=== PATIENT | male | born 2000 | race African-American/Black ===

== ENCOUNTER 2019-03-15 04:45 | Inpatient (IN) | payer SELFPAY ==
[~2019-03-15] VITALS: Ht 170.2 cm; Wt 54.0 kg
[2019-03-15] VITALS (9 sets, daily range): BP systolic 94–164; BP diastolic 8–74
[2019-03-15] MEDS ORDERED: ACETAMINOPHEN 500 MG TAB PO ONE (05:15)
[2019-03-15 06:31] LABS: Urine Bacteria NONE SEEN /hpf (None Seen); Urine Blood Negative /uL (Negative); Urine Specific Gravity 1.021 (1.001-1.035); Urine WBC 2 /hpf (0 - 3)
[2019-03-15 07:31] LABS: Basophils # (auto) 0 uL; Basophils % (auto) 0.6 % (0.0-2.0); Eosinophils # (auto) 0 uL; Eosinophils % (auto) 0.1 % (0.0-7.0); Hematocrit 25.4 % (41.0-53.0); Hemoglobin 8.5 g/dL (13.5-17.5); Lymphocytes # (auto) 0.7 uL; Lymphocytes % (auto) 22.9 % (10.0-50.0); Mean Corpuscular Hemoglobin 28.2 pg (28.0-32.0); Mean Corpuscular Hgb Conc. 33.5 g/dL (32.0-36.0); Mean Corpuscular Volume 84.1 fL (80.0-100.0); Monocytes # (auto) 0.2 uL; Monocytes % (auto) 7.3 % (0.0-12.0); Neutrophils # (auto) 2.1 uL; Neutrophils % (auto) 69.1 % (37.0-80.0); Nucleated Red Blood Cells % 0.3 %; Platelet Count (auto) 121 10^3/uL (140-450); Red Blood Cells 3.01 10^6/uL (4.5-5.90); Red Cell Distribution Width 15.4 % (11.8-14.3)
[2019-03-15 07:38] LABS: Albumin 2.6 g/dL (3.4-5.0); Calcium 7.5 mg/dL (8.5-10.1); Potassium 3.7 mmol/L (3.5-5.1)
[2019-03-15 07:43] LABS: BUN/Creatinine Ratio 12.4; Bilirubin, Total 0.7 mg/dL (0.2-1.0); Total Protein 8.8 g/dL (6.4-8.2)
[2019-03-15] MEDS ORDERED: SODIUM CHLORIDE 0.9% 1,000 ML IV ONE ×2 (08:00)
[2019-03-15] MEDS ORDERED: cefTRIAXone W LIDOCAINE 1 GM IM IM ONE (08:00)
[2019-03-15] MEDS ORDERED: FERROUS SULFATE 325 MG TAB PO ONE (08:00)
[2019-03-15] MEDS ORDERED: AZITHROMYCIN 500MG/ 250ML 250 ML IV ONE (08:15)
[2019-03-15] MEDS ORDERED: IOHEXOL 300 MG/ML 100ML BOTTLE IJ ONE (09:43)
[2019-03-15] MEDS ORDERED: MORPHINE SULF INJ 2 MG/ML SYRINGE 1ML IV PRN ×2 (09:45)
[2019-03-15] MEDS ORDERED: NITROGLYCERIN 0.4 MG SL TAB SL PRN (09:45)
[2019-03-15] MEDS ORDERED: ONDANSETRON HCL 4 MG/2 ML VIAL IV PRN (09:45)
[2019-03-15] MEDS ORDERED: HYDROcodone-ACET 5/325MG TAB PO PRN (09:45)
[2019-03-15] MEDS: cefTRIAXone 1GM/50ML D5W 50 ML IV SCH (09:57)
[2019-03-15] MEDS ORDERED: FAMOTIDINE 20 MG TAB PO SCH (10:00)
[2019-03-15] MEDS ORDERED: AZITHROMYCIN 500MG/ 250ML 250 ML IV SCH (10:00)
[2019-03-15 10:11] LABS: % Iron Saturation 8.4 % (20-55)
[2019-03-15] MEDS: SODIUM CHLORIDE 0.9% 1,000 ML IV SCH (10:15)
[2019-03-15] MEDS: ALBUTEROL SULF 2.5 MG/0.5ML(0.5%) NEB SOLN NEB SCH ×2 (12:30→19:00)
[2019-03-15] MEDS: IPRATROPIUM BROM 0.5 MG/2.5ML INH SOL NEB SCH ×2 (12:30→19:00)
[2019-03-15] MEDS ORDERED: VANCOMYCIN PER PHARMACY 0 MG IV SCH (19:45)
--- NOTE | 2019-03-15 19:45 | NUR ---
UA AND RAPID INFLUENZA A/B SENT TO LAB
[2019-03-15] MEDS: ACETAMINOPHEN 500 MG TAB PO PRN (20:00)
--- NOTE | 2019-03-15 20:11 | NUR ---
PAGED HOSPITALIST REGARDING PATIENT, CXR ORDERED ROUTINE, PATIENT CURRENT VITALS T 102.9 HR 140 20 RR BP 103/79 O2 SAT 95% ON 12L OXYMIZER. ABG RESULTS UPLOADED. AWAITING CALL BACK. Addendum: 03/15/19 at 2013 by EVETTE RUIZ RN RN PT C/O NUMBNESS TO RIGHT ARM AT SITE WHERE ABG WAS TAKEN AWAITING HOSPITALIST TO CALL BACK TO INFORM HIM
[2019-03-15 20:26] LABS: Alcohol, Urine < 3.0 mg/dL (0-5); Amphetamine Screen, Urine NEGATIVE (NEGATIVE); Barbiturate Scree,Urine NEGATIVE (NEGATIVE); Benzodiazephine Screen, Urine NEGATIVE (NEGATIVE); Cannabinoid Screen, Urine NEGATIVE (NEGATIVE); Cocaine Screen, Urine NEGATIVE (NEGATIVE); Opiate Scree,Urine NEGATIVE (NEGATIVE); Phencyclidine Screen, Urine NEGATIVE (NEGATIVE)
--- NOTE | 2019-03-15 20:32 | NUR ---
RT INFORMED ME NEW ORDERS FOR VAPOTHERM PATIENT NEEDS TO BE ATLEAST STEP DOWN, INFORMED HIM AWAITING HOSPITALIST CALL BACK FOR ORDER CLARIFICATIONS
[2019-03-15] MEDS ORDERED: VANCOMYCIN 1GM/250ML 250 ML IV ONE (21:00)
--- NOTE | 2019-03-15 21:07 | NUR ---
REPORT GIVEN TO NURSE OCAMPO.
--- NOTE | 2019-03-15 21:30 | NUR ---
pt transferred to icu via gurney at 2114 by evelia RAMIREZ. hooked up to icu monitors. pt alert and oriented x4. sinus tach on cardiac rn. bp 104/60 respirations 30 breaths per minute, on oxymizer at 10L o2 sat is 96%. lung sounds coarse and diminished. pt stated "No, I'm not having pain right now." when asked. mother at bedside, updated on patient status, verbalized understanding. bed in lowest locked position. in full view of nurses station. will continue to monitor. 0 Respirator therapist jose at bedside, hooking pt up to vapotherm machine.
--- NOTE | 2019-03-15 21:35 | NUR ---
PATIENT HAS ORDERS TO BE TRANSFERRED TO ICU TO BE CLOSELY MONITORED AND PLACED ON VAPOTHERM PER HOSPITALIST ORDERS. TRANSFERRED PATIENT VIA GURNEY WITH 02 15L OXYMIZER ACCOMPANIED BY CENSUS ENUMERATOR AND MOTHER. ALL BELONGINGS WITH PATIENT. PATIENT IN NO APPARENT CARDIAC OR PULMONARY DISTRESS. PATIENT TRANSFERRED TO ROOM 110 WITHOUT ANY ISSUES. NURSE TERRENCE TO RESUME CARE OF PATIENT.
[2019-03-15] MEDS: FAMOTIDINE 20 MG TAB PO SCH (22:26)
--- NOTE | 2019-03-15 23:45 | NUR ---
education educated pt to call for assistance from staff member before getting out of bed. educated pt station agent light and how to use, return demonstration done. pt verbalized understanding.
[2019-03-16] VITALS (42 sets, daily range): BP systolic 92–140; BP diastolic 57–84
--- NOTE | 2019-03-16 01:04 | NUR ---
pt resting in bed with eyes closed, vital signs stable.
[2019-03-16 04:09] LABS: Potassium 3.9 mmol/L (3.5-5.1)
[2019-03-16] MEDS: SODIUM CHLORIDE 0.9% 1,000 ML IV SCH ×2 (05:31→19:47)
[2019-03-16 05:40] LABS: Basophils # (auto) 0.1 uL; Basophils % (auto) 2.4 % (0.0-2.0); Eosinophils # (auto) 0 uL; Eosinophils % (auto) 0.2 % (0.0-7.0); Hematocrit 27.6 % (41.0-53.0); Hemoglobin 8.8 g/dL (13.5-17.5); Lymphocytes # (auto) 0.6 uL; Lymphocytes % (auto) 26.3 % (10.0-50.0); Mean Corpuscular Hemoglobin 27.3 pg (28.0-32.0); Mean Corpuscular Hgb Conc. 31.9 g/dL (32.0-36.0); Mean Corpuscular Volume 85.7 fL (80.0-100.0); Monocytes # (auto) 0.2 uL; Monocytes % (auto) 9.3 % (0.0-12.0); Neutrophils # (auto) 1.4 uL; Neutrophils % (auto) 61.8 % (37.0-80.0); Nucleated Red Blood Cells % 0.8 %; Platelet Count (auto) 120 10^3/uL (140-450); Red Blood Cells 3.22 10^6/uL (4.5-5.90); Red Cell Distribution Width 15.8 % (11.8-14.3); White Blood Cell 2.2 10^3/uL (4.4-10.8)
[2019-03-16] MEDS: IPRATROPIUM BROM 0.5 MG/2.5ML INH SOL NEB SCH ×3 (06:17→18:31)
[2019-03-16] MEDS: ALBUTEROL SULF 2.5 MG/0.5ML(0.5%) NEB SOLN NEB SCH ×3 (06:17→18:31)
--- NOTE | 2019-03-16 08:00 | NUR ---
Respiratory note: INCREASED FLOW TO 50L AND FIO2 TO 70% . PT SPO2 WAS DROPPING INTO LOW 80'S. RN VIVIENNE GARCIA.
--- NOTE | 2019-03-16 08:30 | NUR ---
ELIMINATION Patient was able to void in urinal 200ml of urine and had a large soft brown bowel movement.
[2019-03-16] MEDS: ACETAMINOPHEN 500 MG TAB PO PRN (08:34)
--- NOTE | 2019-03-16 08:40 | NUR ---
NUTRITION Patient refused breakfast.
[2019-03-16] MEDS: VANCOMYCIN 750mg/250ml 250 ML IV SCH ×2 (08:43→21:17)
--- NOTE | 2019-03-16 09:45 | NUR ---
TEMPERATURE Rechecked temperature after Tylenol administration temperature 101.0. Cooling measures applied and turned on fan. Will continue to monitor patient closely.
[2019-03-16] MEDS: cefTRIAXone 1GM/50ML D5W 50 ML IV SCH (09:54)
[2019-03-16] MEDS: FAMOTIDINE 20 MG TAB PO SCH ×2 (09:54→22:25)
--- NOTE | 2019-03-16 10:05 | NUR ---
Respiratory note: TITRATED FIO2 TO 65%. ASHLEY PALAFOX NOTIFIED.
--- NOTE | 2019-03-16 11:35 | NUR ---
ELIMINATION Patient was able to void 300ml of urine in urinal.
[2019-03-16] MEDS ORDERED: AZITHROMYCIN 500MG/ 250ML 250 ML IV SCH (12:00)
--- NOTE | 2019-03-16 12:36 | NUR ---
Respiratory note: TITRATED FIO2 TO 60%. ASHLEY PALAFOX NOTIFIED.
[2019-03-16] MEDS ORDERED: ALBUTEROL SULF 2.5 MG/0.5ML(0.5%) NEB SOLN NEB PRN (13:45)
[2019-03-16] MEDS ORDERED: PIPERACILLIN-TAZOB 3.375GM 100 ML IV ONE (13:45)
--- NOTE | 2019-03-16 13:45 | NUR ---
ELIMINATION Patient was able to use urinal and voided 400ml.
[2019-03-16] MEDS: IRON SUCROSE COMPLEX 200 MG in SODIUM CHL 0.9% 100 ML IV SCH (15:00)
[2019-03-16] MEDS ORDERED: FILGRASTIM (TBO) 300 MCG/0.5 ML SYRG SC ONE (15:15)
--- NOTE | 2019-03-16 16:25 | NUR ---
Respiratory note: TITRATED FIO2 TO 70%, PT SPO2 WAS IN THE MID 80'S.
--- NOTE | 2019-03-16 16:25 | NUR ---
MD Dr. Baugh at bedside updated on patient condition with new orders, MD to input into system. MD spoke to patient regarding plan of care and questions and concerns answered by MD.
[2019-03-16 17:07] LABS: INR 1.11 (0.9-1.15)
--- NOTE | 2019-03-16 17:15 | NUR ---
ELIMINATION Patient was able to void 400ml in urinal.
--- NOTE | 2019-03-16 17:30 | NUR ---
SMASH PIECER Adriana SMASH PIECER at bedside updated on patient condition with new orders. SMASH PIECER to input into system. SMASH PIECER spoke to patient regarding plan of care and questions and concerns answered by MD.
--- NOTE | 2019-03-16 19:00 | NUR ---
Opening note Assumed care of patient at this time. Report received from day shift RN. POC reviewed. Head to toe assessment complete, see intervention spreadsheet for complete details. Received pt alert and oriented x4. PT tachycardic, tachypneic, received pt on Oxymizer. Urinal at bedside. IV site benign. Call light with in reach. Bed locked and in lowest position, safety precautions in place. Will monitor pt carefully.
--- NOTE | 2019-03-16 19:48 | NUR ---
Temp Axillary Temp, 102.7. Hr 140's POX 86% RR 30's on high flow. Pt given tylenol for fever as ordered. Cooling measures initiated. Will continue to assess.
--- NOTE | 2019-03-16 21:10 | NUR ---
Temp reassessment Axillary temp 101.7. Will continue with cooling measures.
[2019-03-16] MEDS: PIPERACILLIN-TAZOB 3.375GM 100 ML IV SCH (22:25)
--- NOTE | 2019-03-16 22:57 | NUR ---
Temp reassessment Axillary temp 99.2. Will continue to monitor.
[2019-03-17] VITALS (81 sets, daily range): BP systolic 60–144; BP diastolic 26–97
[2019-03-17] MEDS: SODIUM CHLORIDE 0.9% 1,000 ML IV SCH ×2 (02:00→13:59)
[2019-03-17] MEDS: PIPERACILLIN-TAZOB 3.375GM 100 ML IV SCH ×3 (04:05→17:01)
[2019-03-17 04:18] LABS: Basophils # (auto) 0 uL; Basophils % (auto) 0.5 % (0.0-2.0); Eosinophils # (auto) 0 uL; Eosinophils % (auto) 0.5 % (0.0-7.0); Hematocrit 31.5 % (41.0-53.0); Hemoglobin 10.5 g/dL (13.5-17.5); Lymphocytes # (auto) 0.9 uL; Mean Corpuscular Hemoglobin 28.2 pg (28.0-32.0); Mean Corpuscular Hgb Conc. 33.3 g/dL (32.0-36.0); Mean Corpuscular Volume 84.7 fL (80.0-100.0); Monocytes # (auto) 0.2 uL; Monocytes % (auto) 6.8 % (0.0-12.0); Neutrophils # (auto) 2.2 uL; Neutrophils % (auto) 65.2 % (37.0-80.0); Nucleated Red Blood Cells % 0.4 %; Platelet Count (auto) 157 10^3/uL (140-450); Red Blood Cells 3.72 10^6/uL (4.5-5.90); Red Cell Distribution Width 16.2 % (11.8-14.3); White Blood Cell 3.3 10^3/uL (4.4-10.8)
[2019-03-17 04:38] LABS: Potassium 3.8 mmol/L (3.5-5.1)
[2019-03-17 04:44] LABS: BUN/Creatinine Ratio 8.3; Calcium 6.9 mg/dL (8.5-10.1); Magnesium 2.1 mg/dL (1.6-2.6)
[2019-03-17 04:49] LABS: Folate (Folic Acid) 6.28 ng/mL (5.38-24)
[2019-03-17] MEDS: ALBUTEROL SULF 2.5 MG/0.5ML(0.5%) NEB SOLN NEB SCH ×3 (06:11→18:51)
[2019-03-17] MEDS: IPRATROPIUM BROM 0.5 MG/2.5ML INH SOL NEB SCH ×3 (06:11→18:51)
--- NOTE | 2019-03-17 06:23 | NUR ---
Consent obtained for CTA
[2019-03-17] MEDS: VANCOMYCIN 750mg/250ml 250 ML IV SCH (09:01)
--- NOTE | 2019-03-17 09:02 | NUR ---
Breakfast tray provided. Patient ate 10% of his meal.
--- NOTE | 2019-03-17 09:15 | NUR ---
Dr. Tripp at bedside.
[2019-03-17] MEDS ORDERED: BACTRIM 5MG/KG Q8HR PER RX 0 ML IV SCH (09:30)
[2019-03-17] MEDS ORDERED: IOHEXOL 350 MG/ML 100ML IJ ONE ×3 (09:43→17:12)
[2019-03-17] MEDS: FAMOTIDINE 20 MG TAB PO SCH ×2 (10:17→22:17)
[2019-03-17] MEDS: methylPREDNISolone SOD SUCC 125 MG/2 ML VL IV SCH ×3 (10:17→22:17)
[2019-03-17] MEDS ORDERED: ROCURONIUM 10MG/ML 10ML VIAL IV ONE (10:30)
[2019-03-17] MEDS ORDERED: ETOMIDATE (2MG/ML) 20ML VIAL IV ONE ×2 (10:30→11:00)
--- NOTE | 2019-03-17 10:30 | NUR ---
Dr. Vallecillo at bedside discussing POC with the patient and family members.
--- NOTE | 2019-03-17 10:31 | NUR ---
Dr. Tripp at bedside discussing intubation with the patient and family. Patient agreed to be intubated. All risks and benefits discussed with the patient. Patient verbalized understanding.
--- NOTE | 2019-03-17 10:45 | NUR ---
INTUBATION PT DESATTING DOWN TO 84% ON HFNC 60L 100%. PT INTUBATED BY DR RASCON ON FIRST ATTEMPT WITH 8.0 SECURED AT 24CM LIP WITH HOLISTER. ETT PLACEMENT CONFIRMED BY GOOD COLOR CHANGE ON CO2 DETECTOR, BILATERAL BREATH SOUNDS. PT PLACED ON VENT V21 PLUGGED INTO RED OUTLET AND PROPER O2 SOURCE. BREATH SOUNDS DIMINISHED THROUGHOUT. SUCTIONED MODERATE AMOUNT THIN YELLOW SECRETIONS. SPUTUM SAMPLE SENT TO LAB. WILL CONTINUE TO MONITOR.
--- NOTE | 2019-03-17 10:45 | NUR ---
Patient intubated with 8.0 ETT, 24 cm [address] lip [address] Tripp. X-ray paged for STAT CXR to confirm tube placement.
[2019-03-17] MEDS: fentaNYL Drip 2500mCg/250mlNS 250 ML IV SCH (10:51)
[2019-03-17] MEDS: MIDAZOLAM DRIP 50 mg/50mL 50 ML IV SCH ×3 (10:52→18:11)
--- NOTE | 2019-03-17 11:06 | NUR ---
Portable xray in progress.
--- NOTE | 2019-03-17 11:09 | NUR ---
Respiratory note: ETT PULLED BACK [address] RASCON'S ORDERS AFTER REVIEWING CXR. ETT NOW 8.0 @ 23 CM LIP SECURED WITH HOLISTER. PLACED PT ON PCV, RR 24, IP 20, PEEP +14, FIO2 100%, I TIME 1.[address] RASCON'S ORDERS. PT TOLERATING CHANGES WELL WITH POX NOW 94%. ALARMS SET AND AUDIBLE. ABG TO FOLLOW. WILL CONTINUE TO MONITOR.
--- NOTE | 2019-03-17 11:09 | NUR ---
Nasogastric tube insertion Patient educated on need for NG tube. All questions addressed. NGT inserted per MD order. Placement verified by auscultation and chest xray.
[2019-03-17] MEDS ORDERED: NOREPINEPHRINE 8 MG/250ML KIT 250 ML IV SCH (11:13)
[2019-03-17] MEDS: PROPOFOL 100 ML IV SCH (11:13)
[2019-03-17] MEDS ORDERED: LIDOCAINE 1% (LOCAL ANESTH.) PF 5ml SDV ID ONE (12:15)
--- NOTE | 2019-03-17 12:50 | NUR ---
Respiratory note: CALLED DR RASCON WITH ABG RESULTS, NEW VENT ORDERS RECEIVED. DECREASED RR TO 20, PEEP TO +12. NO FOLLOW-UP ABG ORDERED. ABG TOMORROW MORNING. WILL ENDORSE PT CARE TO NOC SHIFT RT. PT TOLERATING CHANGES WELL WITH POX 97%. PICC LINE NURSE AT BEDSIDE. PT SEDATED AND UNRESPONSIVE. WILL CONTINUE TO MONITOR.
--- NOTE | 2019-03-17 12:53 | NUR ---
PICC line placement Patient significant other educated on need for PICC line placement. All risks and benefits explained and all questions and concerns addressed prior to procedure. Noted past medical history and allergies with no contraindications. INR and Plt counts within acceptable range. 5 fr PICC line inserted via right brachial vein using [email or web address]'s [employer] US and Tip Location System. Sterile technique with maximum barrier precautions utilized. Blood return obtained from each of the 3 lumens and each flushed easily with NS using proper technique. PICC secured with Stat-lock; biodisc and occlusive dressing applied. Stat portable chest x-ray obtained for PICC tip placement. Initial image showed the distal end of the PICC line kinked in the SVC. PICC line readjusted using sterile technique and successfully placed into corrent position. *Baseline Arm Circumference 23 cm. Internal length 37 cm. External length 0 cm. PICC lot #[id number] Addendum: 03/17/19 at 1426 by TORSTEN DOVER RN Internal length 32 cm. External length 5 cm
[2019-03-17] MEDS ORDERED: NOREPINEPHRINE BITARTRATE 32 MG in D5W 5% 218 ML IV SCH (13:07)
[2019-03-17] MEDS ORDERED: PHENYLEPHRINE INJ 40 MG in SODIUM CHL 0.9% 250 ML IV SCH (13:07)
--- NOTE | 2019-03-17 13:15 | NUR ---
Okay to use PICC line Xray completed. Okay to use PICC line.
[2019-03-17] MEDS ORDERED: ACETAMINOPHEN 650 mg PER 20 mL UD GT PRN (13:30)
[2019-03-17] MEDS ORDERED: ACETAMINOPHEN 650 mg PER 20 mL UD ONE (13:33)
--- NOTE | 2019-03-17 13:57 | NUR ---
Pinedo catheter insertion Patient assessed and determined to be in need of pinedo catheter. Order obtained from MD. Patient educated on catheter and reason for insertion. Pinedo catheter #16 gauge Indonesian inserted with clean sterile technique. Patient tolerated well.
[2019-03-17] MEDS: IRON SUCROSE COMPLEX 200 MG in SODIUM CHL 0.9% 100 ML IV SCH (14:00)
[2019-03-17] MEDS ORDERED: SULFAMETH-TRIMETH 80/16MG-ML 15 ML in D5W 5% 500 ML IV SCH (14:00)
--- NOTE | 2019-03-17 14:11 | NUR ---
Max temperature 101.8, Tylenol 650mg PO given per protocol. Cooling measures implemented. Ice packs applied to patients axillary and groin area.
--- NOTE | 2019-03-17 19:00 | NUR ---
Opening note Assumed care of patient at this time. Report received from day shift RN. POC reviewed. Head to toe assessment complete, see intervention spreadsheet for complete details. Received pt intubated and sedated. VSS. PT on blood pressure support. Pt opens eyes to stimulation, does not move extremities. Left nare ngt clamped at this time. Sifuentes catheter draining to gravity. PICC line benign. Bed locked and in lowest position, safety precautions in place. Will monitor pt carefully.
[2019-03-17] MEDS: VANCOMYCIN 1,250 MG in D5W 5% 250 ML IV SCH (21:05)
--- NOTE | 2019-03-17 22:07 | NUR ---
lab report +blood cultures budding yeast. Hospitalist paged to notify of results.
[2019-03-17] MEDS: SODIUM CHLOR 0.9% PF (SALINE LOCK) 10ML VIAL/SYR IV SCH (22:18)
[2019-03-17] MEDS: SULFAMETH-TRIMETH 80/16MG-ML 15 ML in D5W 5% 500 ML IV SCH (22:18)
--- NOTE | 2019-03-17 23:03 | NUR ---
Hospitalist aware of blood culture report. Orders placed by hospitalist.
[2019-03-18] VITALS (51 sets, daily range): BP systolic 80–145; BP diastolic 47–97
[2019-03-18] MEDS: MIDAZOLAM DRIP 50 mg/50mL 50 ML IV SCH ×2 (00:04→06:57)
[2019-03-18] MEDS: FLUCONAZOLE 200MG/100ML 100 ML IV SCH ×4 (01:14→11:35)
[2019-03-18] MEDS: PIPERACILLIN-TAZOB 3.375GM 100 ML IV SCH ×2 (01:14→06:53)
[2019-03-18 03:36] LABS: Basophils # (auto) 0.1 uL; Basophils % (auto) 0.3 % (0.0-2.0); Eosinophils # (auto) 0 uL; Hematocrit 29.2 % (41.0-53.0); Hemoglobin 9.1 g/dL (13.5-17.5); Lymphocytes # (auto) 1.4 uL; Lymphocytes % (auto) 6.5 % (10.0-50.0); Mean Corpuscular Hemoglobin 27.2 pg (28.0-32.0); Mean Corpuscular Hgb Conc. 31.1 g/dL (32.0-36.0); Mean Corpuscular Volume 87.6 fL (80.0-100.0); Monocytes # (auto) 0.7 uL; Monocytes % (auto) 3.5 % (0.0-12.0); Neutrophils % (auto) 89.7 % (37.0-80.0); Nucleated Red Blood Cells % 0.6 %; Platelet Count (auto) 132 10^3/uL (140-450); Red Blood Cells 3.33 10^6/uL (4.5-5.90); Red Cell Distribution Width 16.6 % (11.8-14.3); White Blood Cell 21.2 10^3/uL (4.4-10.8)
[2019-03-18 04:03] LABS: BUN/Creatinine Ratio 9.6; Calcium 6.4 mg/dL (8.5-10.1); Magnesium 2.1 mg/dL (1.6-2.6); Potassium 3.7 mmol/L (3.5-5.1)
--- NOTE | 2019-03-18 04:09 | NUR ---
Bed bath Pt given CHG bed bath. PT tolerated well. Skin assessed for integrity changes, none noted. Safety precautions maintained.
[2019-03-18] MEDS: fentaNYL Drip 2500mCg/250mlNS 250 ML IV SCH (04:37)
[2019-03-18] MEDS: methylPREDNISolone SOD SUCC 125 MG/2 ML VL IV SCH (05:28)
[2019-03-18] MEDS: SULFAMETH-TRIMETH 80/16MG-ML 15 ML in D5W 5% 500 ML IV SCH (05:29)
[2019-03-18] MEDS: SODIUM CHLORIDE 0.9% 1,000 ML IV SCH ×2 (05:37→08:39)
[2019-03-18] MEDS: ALBUTEROL SULF 2.5 MG/0.5ML(0.5%) NEB SOLN NEB SCH (06:20)
[2019-03-18] MEDS: IPRATROPIUM BROM 0.5 MG/2.5ML INH SOL NEB SCH (06:20)
--- NOTE | 2019-03-18 08:45 | NUR ---
PT UNSTABLE FOR TRANSPORT TO CT AT THIS TIME PER NELA RAMIREZ .
--- NOTE | 2019-03-18 08:48 | NUR ---
ELEVATED TEMP Fan placed in room on oscillation for 99.5 F rectal temperature.
[2019-03-18] MEDS ORDERED: SODIUM CHLORIDE LOCK 0 ML ONE (09:33)
[2019-03-18] MEDS ORDERED: fentaNYL CITRATE 100 MCG/2 ML VL ONE (09:34)
[2019-03-18] MEDS ORDERED: LIDOCAINE HCL 2% TOP JELLY 5ML TOP ONE (09:34)
[2019-03-18] MEDS ORDERED: MIDAZOLAM HCL 5 MG/ML-1ML VIAL ONE (09:34)
[2019-03-18 09:59] LABS: Hepatitis B Surface Antibody Positive
[2019-03-18] MEDS: VANCOMYCIN 1,250 MG in D5W 5% 250 ML IV SCH (10:22)
[2019-03-18] MEDS: FAMOTIDINE 20 MG TAB PO SCH (10:23)
[2019-03-18] MEDS: SODIUM CHLOR 0.9% PF (SALINE LOCK) 10ML VIAL/SYR IV SCH (10:23)
[2019-03-18] MEDS ORDERED: DEXTROSE (50%) 50ML SYRG IV PRN (10:30)
[2019-03-18 10:32] LABS: Hepatitis A Total Antibody Positive
--- NOTE | 2019-03-18 10:46 | NUR ---
OR TEAM BEDSIDE OR setting up for bronch.
[2019-03-18] MEDS ORDERED: EPINEPHrine HCL 1 MG/1 ML AMP ONE (10:52)
[2019-03-18] MEDS ORDERED: LIDOCAINE 2%HCL (LOCAL ANESTH.) INJ 20ML MDV ONE (10:52)
[2019-03-18] MEDS: PROPOFOL 100 ML IV SCH (11:13)
--- NOTE | 2019-03-18 11:15 | NUR ---
EKG Patient having sinus tachycardia in the 140s-150s. EKG completed. Sinus tachycardia read.
--- NOTE | 2019-03-18 11:16 | NUR ---
PAGED Paged Dr. Vallecillo in regards to patients sinus tachycardia.
--- NOTE | 2019-03-18 11:17 | NUR ---
PAGED MAGNETIC RESONANCE IMAGING DIRECTOR Paged Deborah Sanchez for EKG results.
--- NOTE | 2019-03-18 11:43 | NUR ---
NUTRITION ASSESSMENT NOTES Please refer to link notes of nutrition screen form filed under the intervention section of the plan of care for further details. Est. Needs: 1600 kcal to 2350 kcal (30-35 kcal/kgBW), 54 gms to 65 gms pro (1.0-1.2 gms/kgBW). Will continue to monitor pertinent labs and reassess nutrient need prn Thank you. Addendum: 03/18/19 at [address] Amended: Links added.
--- NOTE | 2019-03-18 11:45 | NUR ---
BEDSIDE Dr. Tripp bedside. No new orders received. to begin procedure.
--- NOTE | 2019-03-18 11:54 | NUR ---
REPEAT PAGED Awaiting call back from Deborah Sanchez.
--- NOTE | 2019-03-18 11:54 | NUR ---
BRONCH COMPLETE Bronch completed by Dr. Tripp at the bedside. Patient tolerated fairly. Samples sent to lab.
--- NOTE | 2019-03-18 11:59 | NUR ---
CODE BLUE CALLED See code blue sheet.
[2019-03-18] MEDS ORDERED: InsuLIN REG 1unit/0.01ml Soln (100units/ml) SC SCH (12:00)
[2019-03-18] MEDS ORDERED: ACCU-CHEK COMFORT CURVE STRIP VI SCH (12:00)
[2019-03-18 12:12] LABS: Hepatitis C Antibody Negative (Negative)
[2019-03-18 12:13] LABS: Hepatitis B Core Total AB Negative; Hepatitis B Surface Antigen Negative (Negative)
[2019-03-18] MEDS ORDERED: EPINEPHrine HCL 250 ML IV ONE (12:14)
[2019-03-18] MEDS ORDERED: EPINEPHrine HCL INJECTION 4 MG in SODIUM CHL 0.9% 250 ML IV SCH (12:15)
[2019-03-18] MEDS ORDERED: SODIUM BICARBONATE 8.4% INJ 50ML SYRINGE ONE ×2 (12:18→12:27)
--- NOTE | 2019-03-18 12:55 | NUR ---
[facility] NOTIFIED Spoke to [facility], reference number [id number]. Patient is cleared from [facility] at this time.
[2019-03-18] MEDS ORDERED: MEROPENEM 1GM IVPB 100 ML IV SCH (13:00)
--- NOTE | 2019-03-18 13:00 | NUR ---
MAIL PROCESSING MACHINE OPERATOR NOTIFIED Waiting for call back from coroners office.
[2019-03-18] MEDS ORDERED: LINEZOLID 600MG/300ML 300 ML IV SCH (16:00)
[2019-03-18] MEDS ORDERED: MICAFUNGIN SODIUM 100 MG in SODIUM CHL 0.9% 100 ML IV SCH (18:00)
--- NOTE | 2019-03-18 18:24 | NUR ---
FAMILY BEDSIDE Family taking patients belongings home with them. Signed the release.
--- NOTE | 2019-03-18 18:26 | NUR ---
PATIENT PICK-UP The patients brother wishes to be called when [employer] picks up the patient. Denny [phone]
--- NOTE | 2019-03-18 19:15 | NUR ---
open note received report from blas rn. patient is . awaiting call from nuclear officer.
--- NOTE | 2019-03-18 19:26 | NUR ---
received phone call from excel analyst spoke with isidro brar. released. release number is [id number].
[2019-03-18] MEDS ORDERED: EPINEPHrine HCL 1 MG/10 ML SYRG IV ONE (19:27)
[2019-03-18] MEDS ORDERED: SODIUM BICARBONATE 8.4% INJ 50ML SYRINGE IV ONE (19:27)
[2019-03-18] MEDS ORDERED: ATROPINE SULF 1 MG/10ml SYR IV ONE (19:54)
--- NOTE | 2019-03-18 20:41 | NUR ---
confirmed mortuary called sister rosibel melo to confirm mortuary. confirmed that it is going to be at [facility] Address: [address], [address], [place] [address] Phone number: [phone] This is for a courtesy hold. Spoke with kenneth at [facility] [employer].
--- NOTE | 2019-03-18 22:14 | NUR ---
[employer] at bed bedside to mixing picker tender patient called brother to inform about body mixing picker tender.
== END 2019-03-18 22:13 | disposition expired | DRG 871 ==
LOC: ER 04:45 → OVERFLOW 04:46 → EAST 14:45 → ICU WEST 21:31
PROVIDERS: ADMIT Nurse Practitioner Acute Care; ATTEND Internal Medicine
PROC: 02HV33Z Insertion of Infusion Device into Superior Vena Cava, Percutaneous Approach (ICD-10-PCS; 2019-03-17)
PROC: 5A1945Z Respiratory Ventilation, 24-96 Consecutive Hours (ICD-10-PCS; 2019-03-17)
PROC: 04HY32Z Insertion of Monitoring Device into Lower Artery, Percutaneous Approach (ICD-10-PCS; 2019-03-18)
PROC: 0BH17EZ Insertion of Endotracheal Airway into Trachea, Via Natural or Artificial Opening (ICD-10-PCS; 2019-03-18)
PROC: 0B9D8ZX Drainage of Right Middle Lung Lobe, Via Natural or Artificial Opening Endoscopic, Diagnostic (ICD-10-PCS; 2019-03-18)
PROC: 0B978ZZ Drainage of Left Main Bronchus, Via Natural or Artificial Opening Endoscopic (ICD-10-PCS; 2019-03-18)
PROC: 0B938ZZ Drainage of Right Main Bronchus, Via Natural or Artificial Opening Endoscopic (ICD-10-PCS; 2019-03-18)
PROC: 5A12012 Performance of Cardiac Output, Single, Manual (ICD-10-PCS; principal; 2019-03-18 10:45)
DX: A41.9 Sepsis, unspecified organism (principal); J96.01 Acute respiratory failure with hypoxia; R65.21 Severe sepsis with septic shock; N17.0 Acute kidney failure with tubular necrosis; J18.9 Pneumonia, unspecified organism; D61.818 Other pancytopenia; E44.0 Moderate protein-calorie malnutrition; J98.11 Atelectasis; E87.1 Hypo-osmolality and hyponatremia; E87.2 Acidosis; Z68.1 Body mass index [BMI] 19.9 or less, adult; D50.9 Iron deficiency anemia, unspecified; I46.9 Cardiac arrest, cause unspecified; T38.0X5A Adverse effect of glucocorticoids and synthetic analogues, initial encounter; R59.0 Localized enlarged lymph nodes
CPT/HCPCS: 36415; 36569; 36600; 70450; 71045; 71046; 71260; 74177; 80048; 80053; 80202; 80307; 81001; 82607; 82746; 82805; 83540; 83550; 83605; 83615; 83735; 83880; 84443; 85025; 85045; 85610; 85652; 86038; 86701; 86703; 86704; 86706; 86708; 86803; 86850; 86900; 86901; 87040; 87070; 87081; 87205; 87340; 87804; 93005; 93306; 93886; 94002; 94003; 94640; 96365; 96366; 96372; A4618; G0378; J0171; J0696; J1447; J1450; J1756; J2185; J2248; J2250; J2405; J2543; J3490; J7060